=== PATIENT | female | born 1960 | race Hispanic/Latino ===

== ENCOUNTER 2017-10-13 13:13 | Outpatient (CLI) | payer MEDICARE ==
--- NOTE | 2017-10-13 16:20 | XRay Report ---
XRAY BILATERAL KNEE FOUR VIEWS EACH: 10/13/17 13:13:00 CLINICAL: Bilateral knee pain. FINDINGS: Right: Moderately severe osteoarthritis involving the medial, lateral and patellofemoral joints. Complete loss of the medial joint space with standing. Meniscal chondrocalcinosis and medial extrusion of the medial meniscus. No fracture or dislocation. Prominent quadriceps enthesophyte. No joint effusion. Normal soft tissues. Left: Moderate osteoarthritis involving the medial joint space and more severe osteoarthritis of the patellofemoral joint. Lateral osteophytes with preservation of the joint space. Meniscal chondrocalcinosis. No fracture or dislocation. Normal soft tissues. 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 Right quadriceps enthesopathy.
== END 2017-10-13 13:14 | disposition home or self-care (01) ==
LOC: SPVIMAG 13:13
PROVIDERS: ATTEND Orthopaedic Surgery
DX: M17.0 Bilateral primary osteoarthritis of knee (principal); M11.262 Other chondrocalcinosis, left knee; M11.261 Other chondrocalcinosis, right knee; M77.8 Other enthesopathies, not elsewhere classified